=== PATIENT | male | born 1955 | race Caucasian/White ===

== ENCOUNTER → 2019-01-19 | Outpatient (CLI) | payer BC ==
--- NOTE | 2019-01-19 13:21 | SFUN ---
SLEEP CENTER FOLLOW UP NOTE DATE OF SERVICE: 01/19/2019 This 64-year-old gentleman has been followed in sleep center for treatment of obstructive sleep apnea-hypopnea syndrome. Recently patient received new CPAP unit. Today is his first visit after he started to use new CPAP equipment. Patient likes his new machine. He is using it every night for the whole night. Has some discomfort related to his nasal mask. [place] Sleepiness Scale today is 5, which is in normal range. I checked patient's CPAP unit. CPAP pressure is 10 cm of water. The patient is using equipment 100% of nights more than 4 hours with average usage is 7.4 hours per night. Leak is only 6 L/minute, which is normal range. Apnea-hypopnea index is 1.1, which is totally normal. MEDICATIONS: Metformin, atorvastatin, clonazepam, ibuprofen and ropinirole. PHYSICAL EXAMINATION: During physical exam, patient in no distress. VITAL SIGNS: BP 152/81, HR 76, RR 16, weight 260, temp 98.3, oxygen saturation on room air 96%. HEENT: PERRLA, EOMI. Oropharynx extremely low position of soft palate. Mallampati 4. NECK: Supple, no JVD. Thyroid is not palpable. LUNGS: Clear to percussion and to auscultation. Good air exchange. No wheezing or rhonchi. HEART: S1, S2 regular. No murmurs, gallops, or rubs. ABDOMEN: Obese. EXTREMITIES: Up to 1+ ankle edema. NURSE SPECIALIST: Awake, alert, and oriented X3. Cranial nerves 2 to 7 intact. There is no fasciculation or atrophy. noted. No focal deficits observed. IMPRESSION: 1. Obstructive sleep apnea-hypopnea syndrome. Patient demonstrated 100% compliance with treatment benefitting from treatment. 2. Obesity. 3. Diabetes mellitus. 4. History of asthma. 5. Hyperlipidemia. 6. Status post bilateral knee replacement. 7. Status post rotator cuff surgery on the right side. 8. Status post hernia repair. PLAN: 1. Patient will continue to use CPAP equipment every night for the whole night. 2. Losing weight. 3. Sleep hygiene with regular time in bed for at least 7-1/2 of 8 hours. 4. No driving if feeling sleepiness. 5. We will see if we could find for patient more comfortable mask. Thank you very much for allowing me to participate in management of your patient. Sincerely, Jose Cruz MD, PhD, FAASM Diplomat of [employer] Supervisor [facility] [place] MMALVIN / JADE: [id number] /
== END | disposition home or self-care (01) ==
LOC: SLEEP 10:52
PROVIDERS: ATTEND Internal Medicine
DX: G47.33 Obstructive sleep apnea (adult) (pediatric) (principal); E11.9 Type 2 diabetes mellitus without complications; E78.5 Hyperlipidemia, unspecified; E66.9 Obesity, unspecified; Z96.653 Presence of artificial knee joint, bilateral; Z87.09 Personal history of other diseases of the respiratory system; Z98.890 Other specified postprocedural states; Z99.89 Dependence on other enabling machines and devices

== ENCOUNTER 2019-06-07 06:55 | Day surgery (SDC) | payer BC ==
[2019-06-05 11:34] VITALS: BMI 34.2
[~2019-06-07 06:55] MED LIST: LACTATED RINGERS 1,000 ML IV SCH; LIDOCAINE 1% 20 ML VIAL (10MG/ML) FOR IV START INTRADERMA PRN
[2019-06-07] MEDS ORDERED: LACTATED RINGERS 1,000 ML IV ONE (07:06)
[2019-06-07 07:16] VITALS: TEMP 97.9
[2019-06-07 07:31] LABS: Glucose,Whole Blood 135 mg/dL (75-99)
[2019-06-07] MEDS ORDERED: PROPOFOL 10 MG/ML 20 ML VIAL IV ONE (07:37)
--- NOTE | 2019-06-07 07:59 | P.GSHP ---
History of Present Illness H&P Date: 06/07/19 CHIEF COMPLAINT: Colon screen HISTORY OF PRESENT ILLNESS: The patient is a 64-year-old male who presents for colon screen. Lower endoscopy was offered for further evaluation and management. PAST MEDICAL HISTORY: Please see list. PAST SURGICAL HISTORY: Please see list. MEDICATIONS: Please see list. ALLERGIES: Please see list. SOCIAL HISTORY: No illicit drug use FAMILY HISTORY: No reports of Crohn disease or ulcerative colitis. REVIEW OF ORGAN SYSTEMS: CONSTITUTIONAL: No reports of fevers or chills. PHYSICAL EXAM: VITAL SIGNS: Stable GENERAL: Well-developed pleasant in no acute distress. HEENT: No scleral icterus. Extraocular movements grossly intact. Moist buccal mucosa. NECK: Supple without lymphadenopathy. CHEST: Unlabored respirations. Equal bilateral excursions. CARDIOVASCULAR: Regular rate and rhythm. Distal 2+ pulses. ABDOMEN: Soft, nontender, nondistended. MUSCULOSKELETAL: No clubbing, cyanosis, or edema. ASSESSMENT: 1. Colon screen. PLAN: 1. Recommend proceeding with a lower endoscopy Past Medical History Past Medical History: Asthma, Cancer, Diabetes Mellitus, Hyperlipidemia, Hypertension, Prostate Disorder, Sleep Apnea/CPAP/BIPAP Additional Past Medical History / Comment(s): RLS, has cpap, hx skin cancer basal and squamous. asthma no tx. enlarged prostate History of Any Multi-Drug Resistant Organisms: None Reported Past Surgical History: Hernia Repair, Joint Replacement Additional Past Surgical History / Comment(s): dimitrios knee replacement, repair rt torn rotator cuff Past Anesthesia/Blood Transfusion Reactions: Previous Problems w/ Anesthesia Additional Past Anesthesia/Blood Transfusion Reaction / Comment(s): woke up with anesthesia Smoking Status: Former smoker - Past Family History Father Family Medical History: Cancer Additional Family Medical History / Comment(s): prostate cancer Mother Family Medical History: Cancer Additional Family Medical History / Comment(s): breast cancer Brother(s) Family Medical History: Cancer Additional Family Medical History / Comment(s): prostate cancer Medications and Allergies Home Medications Medication Instructions Recorded Confirmed Type Atorvastatin [Lipitor] 20 mg PO HS 06/05/19 06/05/19 History L.acidoph,Paracasei, B.lactis 1 each PO DAILY 06/05/19 06/05/19 History [Probiotic] Losartan Potassium 50 mg PO DAILY 06/05/19 06/05/19 History Melatonin 10 mg PO HS 06/05/19 06/05/19 History metFORMIN HCL [Glucophage] 500 mg PO BID 06/05/19 06/05/19 History rOPINIRole HCL [Requip] 0.5 mg PO HS 06/05/19 06/05/19 History Allergies Allergy/AdvReac Type Severity Reaction Status Date / Time No Known Allergies Allergy Verified 06/05/19 11:22 Surgical - Exam Vital Signs Temp Pulse Resp BP Pulse Ox 97.9 F 90 14 159/87 96 06/07/19 07:15 06/07/19 07:15 06/07/19 07:15 06/07/19 07:15 06/07/19 07:15 Results - Labs Abnormal Lab Results - Last 24 Hours (Table) 06/07/19 Range/Units 07:23 POC Glucose (mg/dL) 135 H (75-99) mg/dL
--- NOTE | 2019-06-07 08:06 | P.PCN ---
Date of Procedure: 06/07/19 Description of Procedure: PREOPERATIVE DIAGNOSIS: Personal history of colon polyps Family history malignant colon polyps Colonoscopy screening POSTOPERATIVE DIAGNOSIS: Personal history of colon polyps Family history malignant colon polyps Colonoscopy screening Tubular adenoma sigmoid colon Tubular adenoma descending colon Scattered diverticulosis Internal hemorrhoids, grade 2 OPERATION: Colonoscopy to the ileocecal valve and appendiceal orifice. Colonoscopy with hot snare polypectomies Colonoscopy with cold forceps biopsies SURGEON: Minal Carpio MD. ANESTHESIA: MAC. INDICATIONS: The patient is an 64-year-old male who presents family history of malignant colon polyps and personal history of colon polyps. Last colonoscopy over 5 years. Benefits and risks were described and informed consent was obtained. DESCRIPTION OF PROCEDURE: The patient had undergone Suprep. He had been brought into the operating room and laid in the left lateral decubitus position. After adequate intravenous sedation, the rectum was examined with 2% lidocaine jelly. The prostate was unremarkable. No external hemorrhoids were encountered. The rectal tone was within normal limits. No lesions were palpated in the rectal vault. An Olympus colonoscope was advanced until the ileocecal valve and appendiceal orifice were clearly viewed. The prep was excellent. Diverticulosis of the descending colon was encountered. Multiple colonic polyps were found and snare polypectomy. No evidence of focal colitis was found. Retroflexion of the scope demonstrated grade 2 internal hemorrhoids without active bleeding or inflammation. The colon was desufflated. The patient had tolerated the procedure well. Withdrawal time was over 6 minutes. FINDINGS: Aronchick preparation quality scale 1 (1-5) Internal hemorrhoids, grade 2 No external hemorrhoids No arteriovenous malformations. Scattered diverticulosis Removal of 3 polyps: - Snare polypectomy 18 cm from the anal verge, 5 mm tubulovillous adenoma polyp, sigmoid colon - Cold forceps biopsy at 20 cm from the anal verge, 4 mm polyp. - Cold forceps biopsy at 25 cm from the anal verge, 3 mm polyp. No focal colitis. RECOMMENDATIONS: Given severity of tubular adenomas, recommend repeat colonoscopy 3 years, 2022 Plan - Discharge Summary Discharge Rx Participant: No New Discharge Prescriptions: No Action rOPINIRole HCL [Requip] 0.5 mg PO HS metFORMIN HCL [Glucophage] 500 mg PO BID Losartan Potassium 50 mg PO DAILY Atorvastatin [Lipitor] 20 mg PO HS L.acidoph,Paracasei, B.lactis [Probiotic] 1 each PO DAILY Melatonin 10 mg PO HS Discharge Medication List Atorvastatin [Lipitor] 20 mg PO HS 06/05/19 [History] L.acidoph,Paracasei, B.lactis [Probiotic] 1 each PO DAILY 06/05/19 [History] Losartan Potassium 50 mg PO DAILY 06/05/19 [History] Melatonin 10 mg PO HS 06/05/19 [History] metFORMIN HCL [Glucophage] 500 mg PO BID 06/05/19 [History] rOPINIRole HCL [Requip] 0.5 mg PO HS 06/05/19 [History] Follow up Appointment(s)/Referral(s): Minal Carpio MD [STAFF PHYSICIAN] - As Needed Patient Instructions/Handouts: Colorectal Polyps (IP), Diverticulosis (ED), Diverticulosis Diet (GEN) Activity/Diet/Wound Care/Special Instructions: Repeat colonoscopy 3 years, 2022 Discharge Disposition: HOME SELF-CARE
[2019-06-07 08:07] VITALS: RESP 16
[2019-06-07 08:17] VITALS: BP 106/54; PULSE 73
== END 2019-06-07 08:40 | disposition home or self-care (01) ==
LOC: ORWHC2ENDO 06:55
PROVIDERS: ATTEND Surgery Plastic and Reconstructive Surgery
DX: Z12.11 Encounter for screening for malignant neoplasm of colon (principal); D12.5 Benign neoplasm of sigmoid colon; K57.30 Diverticulosis of large intestine without perforation or abscess without bleeding; K64.1 Second degree hemorrhoids; Z86.010 Personal history of colon polyps; Z80.0 Family history of malignant neoplasm of digestive organs; I10 Essential (primary) hypertension; E11.9 Type 2 diabetes mellitus without complications; E78.5 Hyperlipidemia, unspecified; J45.909 Unspecified asthma, uncomplicated; G47.33 Obstructive sleep apnea (adult) (pediatric); G25.81 Restless legs syndrome; N40.0 Benign prostatic hyperplasia without lower urinary tract symptoms; Z79.899 Other long term (current) drug therapy; Z79.84 Long term (current) use of oral hypoglycemic drugs; Z85.828 Personal history of other malignant neoplasm of skin; Z99.89 Dependence on other enabling machines and devices; Z98.890 Other specified postprocedural states; Z96.653 Presence of artificial knee joint, bilateral; Z87.891 Personal history of nicotine dependence; Z80.42 Family history of malignant neoplasm of prostate; Z80.3 Family history of malignant neoplasm of breast
CPT/HCPCS: 88305; 45380; 45385; J2704

== ENCOUNTER → 2022-09-01 | Outpatient (CLI) | payer BC ==
--- NOTE | 2022-09-01 13:28 | XR ---
EXAMINATION TYPE: XR chest 2V DATE OF EXAM: 09/01/2022 COMPARISON: None INDICATION: Dyspnea short of breath TECHNIQUE: Frontal and lateral views of the chest are obtained. FINDINGS: The heart size is normal. The pulmonary vasculature is normal. The lungs are clear. IMPRESSION: 1. No acute pulmonary process.
== END | disposition home or self-care (01) ==
LOC: RADXRMAIN 12:51
PROVIDERS: ATTEND Family Medicine
DX: R06.09 Other forms of dyspnea (principal)
CPT/HCPCS: 71046

== ENCOUNTER → 2023-07-06 | Outpatient (CLI) | payer MEDICARE ==
--- NOTE | 2023-07-06 15:36 | US ---
EXAMINATION TYPE: US arterial LE single level DATE OF EXAM: 07/06/2023 2:48 PM CLINICAL INDICATION: Male, 68 years old with history of M48.062 SPINAL STENOSIS, LUMBAR REGION WITH N EUROG; pain in buttocks when walking. History of: Smoker: Previous Hypertension: Yes Diabetic: Yes Hyperlipidemia: Yes TIA/CVA: No Previous Vascular Surgery: No CAD: No WI: No Vascular Ulcers: No Claudication: No Gangrene: No Doppler Waveforms: Right: Multiphasic Left: Multiphasic Right Brachial Pressure: 114 Left Brachial Pressure: 126 Ankle-Brachial Indices: Right: 1.16 Left: 1.17 Toe Brachial Indices: Right: 0.84 Left: 0.82 IMPRESSION: Normal bilateral JAELYN
== END | disposition home or self-care (01) ==
LOC: RADUSWWP 14:17
PROVIDERS: ATTEND Family Medicine
DX: M48.062 Spinal stenosis, lumbar region with neurogenic claudication (principal)
CPT/HCPCS: 93922

== ENCOUNTER 2024-09-20 06:40 | Day surgery (SDC) | payer MEDICARE ==
[2024-09-01 17:25] VITALS: BMI 32.8
[2024-09-20 07:11] VITALS: RESP 16; TEMP 96.7
[2024-09-20] MEDS: LACTATED RINGERS 1,000 ML IV SCH (07:24)
[2024-09-20] MEDS: IV FLUID CONTINUATION 1,000 ML IV ONE (07:24)
[2024-09-20 07:29] LABS: Glucose,Whole Blood 146 mg/dL (70-110)
[2024-09-20] MEDS ORDERED: PROPOFOL 10 MG/ML 20 ML VIAL IV ONE (07:37)
--- NOTE | 2024-09-20 07:55 | P.GSHP ---
History of Present Illness H&P Date: 09/20/24 CHIEF COMPLAINT: GERD and colon screen HISTORY OF PRESENT ILLNESS: The patient is a 69-year-old male who presents with gastroesophageal reflux disease and need for colon screen. Upper and lower endoscopy were offered for further evaluation and management. PAST MEDICAL HISTORY: Please see list. PAST SURGICAL HISTORY: Please see list. MEDICATIONS: Please see list. ALLERGIES: Please see list. SOCIAL HISTORY: No illicit drug use FAMILY HISTORY: No reports of Crohn disease or ulcerative colitis. REVIEW OF ORGAN SYSTEMS: CONSTITUTIONAL: No reports of fevers or chills. GI: Denies any blood in stools or constipation. PHYSICAL EXAM: VITAL SIGNS: Stable GENERAL: Well-developed pleasant in no acute distress. HEENT: No scleral icterus. Extraocular movements grossly intact. Moist buccal mucosa. NECK: Supple without lymphadenopathy. CHEST: Unlabored respirations. Equal bilateral excursions. CARDIOVASCULAR: Regular rate and rhythm. Distal 2+ pulses. ABDOMEN: Soft, nondistended. MUSCULOSKELETAL: No clubbing, cyanosis, or edema. ASSESSMENT: 1. Gastroesophageal reflux disease 2. Colon screen. PLAN: 1. Recommend proceeding with an upper and lower endoscopy Past Medical History Past Medical History: Asthma, Cancer, Diabetes Mellitus, Hearing Disorder / Deafness, Hyperlipidemia, Hypertension, Osteoarthritis (OA), Prostate Disorder, Sleep Apnea/CPAP/BIPAP Additional Past Medical History / Comment(s): EGD/colonoscopy rescheduled from 09-06-24 due to cough and cold symptoms-no current symptom now. RLS, has cpap, hx skin cancer basal and squamous. asthma no tx History of Any Multi-Drug Resistant Organisms: None Reported Past Surgical History: Hernia Repair, Joint Replacement, Orthopedic Surgery Additional Past Surgical History / Comment(s): dimitrios knee replacement, repair rt torn rotator cuff, skin cancer removal. bilat cataract surgery. Past Anesthesia/Blood Transfusion Reactions: Previous Problems w/ Anesthesia Additional Past Anesthesia/Blood Transfusion Reaction / Comment(s): woke up with anesthesia Smoking Status: Former smoker - Past Family History Father Family Medical History: Cancer Additional Family Medical History / Comment(s): prostate cancer Mother Family Medical History: Cancer Additional Family Medical History / Comment(s): breast cancer Brother(s) Family Medical History: Cancer Additional Family Medical History / Comment(s): prostate cancer Medications and Allergies Home Medications Medication Instructions Recorded Confirmed Type Atorvastatin [Lipitor] 10 mg PO HS 06/05/19 09/20/24 History Losartan Potassium 50 mg PO QAM 06/05/19 09/20/24 History metFORMIN HCL [Glucophage] 1,000 mg PO BID 06/05/19 09/20/24 History rOPINIRole HCL [Requip] 1 mg PO HS 06/05/19 09/20/24 History Empagliflozin [Jardiance] 25 mg PO QAM 09/01/24 09/20/24 History Multivitamins, Thera [Multivitamin 1 tab PO QAM 09/01/24 09/20/24 History (formulary)] Zaleplon [Sonata] 10 mg PO HS PRN 09/01/24 09/20/24 History Allergies Allergy/AdvReac Type Severity Reaction Status Date / Time No Known Allergies Allergy Verified 09/20/24 07:06 Surgical - Exam Vital Signs Temp Pulse Resp BP Pulse Ox 96.7 F L 77 16 134/71 97 09/20/24 07:10 09/20/24 07:10 09/20/24 07:10 09/20/24 07:10 09/20/24 07:10 Results - Labs Abnormal Lab Results - Last 24 Hours (Table) 09/20/24 Range/Units 07:18 POC Glucose (mg/dL) 146 H (70-110) mg/dL
--- NOTE | 2024-09-20 07:56 | P.PCN ---
Date of Procedure: 09/20/24 Description of Procedure: PREOPERATIVE DIAGNOSIS: Gastroesophageal reflux disease. Dysphagia POSTOPERATIVE DIAGNOSIS: Gastroesophageal reflux disease with erosive esophagitis Esophageal ulcers Gastritis, acute with bleeding Diaphragmatic hiatal hernia OPERATION: Esophagogastroduodenoscopy with cold forceps biopsies along esophagus, antrum and duodenum SURGEON: Minal Carpio MD ANESTHESIA: MAC. INDICATIONS: The patient is a 69-year-old male who presents with dysphagia and reflux disease. Benefits and risks of the procedure were described. Informed consent was obtained. DESCRIPTION: The patient was brought into the endoscopy suite and laid in the left lateral decubitus position. An Olympus gastroscope was passed along the posterior oropharynx down to the distal esophagus where the squamocolumnar junction was encountered at 37 cm from the incisors. The stomach was entered and no bile refl ux was found. Additional findings are listed below. Biopsies with cold forceps were obtained of the antrum. The first through third portion of the duodenum was examined. Retroflexion of the scope confirmed Hill grade 3 lower esophageal valve. The squamocolumnar junction demonstrated LA grade B erosive esophagitis. The stomach was desufflated. The patient tolerated the procedure well. FINDINGS: Squamocolumnar junction 37 cm from the incisors. Diaphragmatic hiatus at 40 cm. Hiatal hernia, 3 cm sliding-type, Hill grade 3 lower esophageal valve. LA grade C erosive esophagitis. Acute esophageal ulcers without bleeding Biopsies obtained of the duodenum. Acute on chronic gastritis with bleeding with with biopsies obtained. RECOMMENDATIONS: Omeprazole 40 mg daily May benefit from repeat upper endoscopy
--- NOTE | 2024-09-20 08:25 | P.PCN ---
Date of Procedure: 09/20/24 Description of Procedure: PREOPERATIVE DIAGNOSIS: Personal history of colon polyps Colonoscopy screening POSTOPERATIVE DIAGNOSIS: Tubular adenoma ascending colon Tubular adenoma transverse colon Sigmoid diverticulosis OPERATION: Colonoscopy to the ileocecal valve and appendiceal orifice, cecum Colonoscopy with hot snare polypectomy SURGEON: Minal Carpio MD. ANESTHESIA: MAC. INDICATIONS: The patient is an 69-year-old male who presents personal history of colon polyps. Last colonoscopy 5 years. Benefits and risks were described and informed consent was obtained. DESCRIPTION OF PROCEDURE: The patient had undergone Suprep. The patient had been brought into the operating room and laid in the left lateral decubitus position. After adequate intravenous sedation, the rectum was examined with 2% lidocaine jelly. The prostate was unremarkable. No external hemorrhoids were encountered. The rectal tone was within normal limits. No lesions were palpated in the rectal vault. An Olympus colonoscope was advanced until the cecum, ileocecal valve and appendiceal orifice were clearly viewed. The prep was fair. Few sigmoid diverticulosis was encountered. Colonic polyps were found and removed. No evidence of focal colitis was found. Retroflexion of the scope demonstrated grade 1 internal hemorrhoids without active bleeding or inflammation. The colon was desufflated. The patient had tolerated the procedure well. Withdrawal time was over 6 minutes. FINDINGS: Aronchick preparation quality scale 3 (1-5) Internal hemorrhoids, grade 1 External hemorrhoids, grade 1. No arteriovenous malformations. Sigmoid diverticulosis Removal of 2 polyps: - Snare polypectomy ascending colon, 3 mm tubulovillous adenoma - Snare polypectomy mid transverse colon, 4 mm flat villous adenoma No focal colitis. RECOMMENDATIONS: Repeat colonoscopy 3 years, 2027 Plan - Discharge Summary Discharge Rx Participant: No New Discharge Prescriptions: New Omeprazole [PriLOSEC] 40 mg PO DAILY #14 cap Continue rOPINIRole HCL [Requip] 1 mg PO HS metFORMIN HCL [Glucophage] 1,000 mg PO BID Losartan Potassium 50 mg PO QAM Atorvastatin [Lipitor] 10 mg PO HS Multivitamins, Thera [Multivitamin (formulary)] 1 tab PO QAM Zaleplon [Sonata] 10 mg PO HS PRN PRN Reason: Insomnia Empagliflozin [Jardiance] 25 mg PO QAM Discharge Medication List Atorvastatin [Lipitor] 10 mg PO HS 06/05/19 [History] Losartan Potassium 50 mg PO QAM 06/05/19 [History] metFORMIN HCL [Glucophage] 1,000 mg PO BID 06/05/19 [History] rOPINIRole HCL [Requip] 1 mg PO HS 06/05/19 [History] Empagliflozin [Jardiance] 25 mg PO QAM 09/01/24 [History] Multivitamins, Thera [Multivitamin (formulary)] 1 tab PO QAM 09/01/24 [History] Zaleplon [Sonata] 10 mg PO HS PRN 09/01/24 [History] Omeprazole [PriLOSEC] 40 mg PO DAILY #14 cap 09/20/24 [Rx] Follow up Appointment(s)/Referral(s): Minal Carpio MD [STAFF PHYSICIAN] - 10/24/24 1:00 pm Patient Instructions/Handouts: Colorectal Polyps (GEN), Diverticulosis Diet (GEN), Hiatal Hernia (DC), Peptic Ulcer (ED) Activity/Diet/Wound Care/Special Instructions: Repeat colonoscopy 3 years2027 Discharge Disposition: HOME SELF-CARE
[2024-09-20 08:44] VITALS: BP 122/77; PULSE 74
== END 2024-09-20 09:15 | disposition home or self-care (01) ==
LOC: ORWHC2ENDO 06:40
PROVIDERS: ATTEND Surgery Plastic and Reconstructive Surgery
DX: Z12.11 Encounter for screening for malignant neoplasm of colon (principal); D12.2 Benign neoplasm of ascending colon; D12.3 Benign neoplasm of transverse colon; K63.5 Polyp of colon; K57.30 Diverticulosis of large intestine without perforation or abscess without bleeding; K64.0 First degree hemorrhoids; K64.4 Residual hemorrhoidal skin tags; K22.10 Ulcer of esophagus without bleeding; K29.01 Acute gastritis with bleeding; K29.51 Unspecified chronic gastritis with bleeding; K21.00 Gastro-esophageal reflux disease with esophagitis, without bleeding; K44.9 Diaphragmatic hernia without obstruction or gangrene; K22.89 Other specified disease of esophagus; Z86.0100 Personal history of colon polyps, unspecified; E11.9 Type 2 diabetes mellitus without complications; J45.909 Unspecified asthma, uncomplicated; G47.30 Sleep apnea, unspecified; I10 Essential (primary) hypertension; E78.5 Hyperlipidemia, unspecified; M19.90 Unspecified osteoarthritis, unspecified site; G25.81 Restless legs syndrome; H91.90 Unspecified hearing loss, unspecified ear; Z85.828 Personal history of other malignant neoplasm of skin; Z87.891 Personal history of nicotine dependence; Z79.899 Other long term (current) drug therapy; Z79.84 Long term (current) use of oral hypoglycemic drugs; Z98.890 Other specified postprocedural states; Z96.653 Presence of artificial knee joint, bilateral; Z98.41 Cataract extraction status, right eye; Z98.42 Cataract extraction status, left eye
CPT/HCPCS: 45385; 43239; J2704; 88305

== ENCOUNTER → 2024-11-22 | Outpatient (CLI) | payer MEDICARE ==
--- NOTE | 2024-11-22 10:35 | XR ---
EXAMINATION TYPE: XR lumbar spine 2 or 3V DATE OF EXAM: 11/22/2024 10:11 AM COMPARISON: None CLINICAL INDICATION: Male, 69 years old with history of M54.50 low back pain; PHH, pain TECHNIQUE: XR lumbar spine 2 or 3V - Frontal, lateral and coned in L5-S1 lateral views of the spine. FINDINGS: No evidence of any acute osseous pathology. No evidence of loss of vertebral body height i s seen. There is normal alignment of the lumbar vertebral bodies. Scattered disc space narrowing. Mul tilevel large osteophyte formation throughout the visualized spine. There is facet joint arthropathy throughout the spine. Scattered at least mild neural foraminal stenosis. Atherosclerosis of the arterial vasculature. IMPRESSION: 1. No acute fracture. 2. Moderate to severe multilevel disc degeneration. [facility], , 11/22/2024 10:33 AM
== END | disposition home or self-care (01) ==
LOC: RADXRMAIN 09:54
PROVIDERS: ATTEND Family Medicine
DX: M51.360 Other intervertebral disc degeneration, lumbar region with discogenic back pain only (principal)
CPT/HCPCS: 72100